=== PATIENT | male | born 2000 | race Caucasian/White ===

== ENCOUNTER 2018-01-27 19:51 | Emergency (ER) | payer BC ==
[2018-01-27 19:55] VITALS: BP 130/69
--- NOTE | 2018-01-27 19:57 | EDPHY ---
H & P Stated Complaint: Right Arm Redness, Streaking Time Seen by Provider: 01/27/18 19:57 HPI/ROS: HPI CHIEF COMPLAINT: Insect bite right inner arm, streaking HISTORY OF PRESENT ILLNESS: 17-year-old male, presents emergency room with insect bite to the right inner arm he states he thinks it happened yesterday he noticed some streaking up his forearm. It does not go up is humeral region in the does not go to his armpit. No lymphadenopathy. Denies fever. Areas minimally painful. No pruritus. He is unsure what bit him. He thinks it may have happened yesterday. Patient denies IV drug use, or other immunocompromised state. Denies any significant medical history. Past Medical History: No significant medical history Past Surgical History: No significant surgical history Social History: Denies daily use of drugs alcohol tobacco. Family History: Noncontributory ROS REVIEW OF SYSTEMS: A comprehensive 10 point review of systems is otherwise negative aside from elements mentioned in the history of present illness. Exam Constitutional triage nursing summary reviewed, vital signs reviewed, awake/ alert. Eyes normal conjunctivae and sclera, EOMI, PERRLA. HENT normal inspection, atraumatic, moist mucus membranes, no epistaxis, neck supple/ no meningismus, no raccoon eyes. Respiratory clear to auscultation bilaterally, normal breath sounds, no respiratory distress, no wheezing. Cardiovascular rate normal, regular rhythm, no murmur, no edema, distal pulses normal. Gastrointestinal soft, non-tender, no rebound, no guarding, normal bowel sounds, no distension, no pulsatile mass. Genitourinary no CVA tenderness. Musculoskeletal no midline vertebral tenderness, full range of motion, no calf swelling, no tenderness of extremities, no meningismus, good pulses, neurovascularly intact. Skin right arm: Right arm is neurovascular intact good distal pulse, good radial pulse, good cap refill, there is a localized insect bite to the medial aspect distal right arm surrounding erythema with some streaking in a linear fashion up the right forearm. Does not go past the elbow. No significant crepitus, no significant swelling, no significant abscess. Neurologic awake, alert and oriented x 3, AAOx3, moves all 4 extremities equally, motor intact, sensory intact, CN II-XII intact, normal cerebellar, normal vision, normal speech. Psychiatric normal mood/affect. Heme/Lymph/Immune no lymphadenopathy. Differential Diagnosis: Includes but is not limited to in a particular order insect bite, localized inflammation insect bite, cellulitis, phlebitis. Medical Decision Making: Recommend the patient warm compresses, antibiotics as prescribed. Will outline the area here. Return precautions discussed he understands return emergency room if develops worsening swelling, streaking, fever, pain, questions or concerns. Source: Patient - Personal History Current Tetanus Diphtheria and Acellular Pertussis (TDAP): Yes - Medical/Surgical History Hx Asthma: No Hx Chronic Respiratory Disease: No Hx Diabetes: No Hx Cardiac Disease: No Hx Renal Disease: No Hx Cirrhosis: No Hx Alcoholism: No Hx HIV/AIDS: No Hx Splenectomy or Spleen Trauma: No Other PMH: tonsilectomy, colonoscopy (negative) - Social History Smoking Status: Never smoked Constitutional: Initial Vital Signs Temperature (C) 36.8 C 01/27/18 19:53 Heart Rate 73 01/27/18 19:53 Respiratory Rate 18 01/27/18 19:53 Blood Pressure 130/69 H 01/27/18 19:53 O2 Sat (%) 93 01/27/18 19:53 O2 Delivery Mode Room Air Allergies/Adverse Reactions: No Known Allergies Allergy (Unverified 01/27/18 19:53) Home Medications: Medication Instructions Recorded Cephalexin [Keflex] 500 mg PO Q6H #28 cap 01/27/18 Departure - Departure Disposition: Home, Routine, Self-Care Clinical Impression: Phlebitis Insect bite Qualifiers: Encounter type: initial encounter Qualified Code(s): W57.XXXA - Bitten or stung by nonvenomous insect and other nonvenomous arthropods, initial encounter Condition: Good Instructions: Phlebitis (ED), Insect Bite or Sting (ED) Additional Instructions: 1. Recommend warm compresses 2 to 3 times a day. 2. Antibiotics as prescribed. 3. Return if this gets worse, worsening swelling, pain, redness, streaking. Prescriptions: Cephalexin [Keflex] 500 mg PO Q6H #28 cap
[2018-01-27] MEDS ORDERED: CEPHALEXIN 500MG PREPACK#4 BTL TAKEHOME ONE (20:28)
== END 2018-01-27 20:39 | disposition home or self-care (01) ==
DX: S40.861A Insect bite (nonvenomous) of right upper arm, initial encounter (principal); I80.9 Phlebitis and thrombophlebitis of unspecified site; W57.XXXA Bitten or stung by nonvenomous insect and other nonvenomous arthropods, initial encounter